=== PATIENT | male | born 1950 | race Caucasian/White ===

== ENCOUNTER 2017-08-22 05:50 | Inpatient (IN) | payer MEDICARE, BC ==
--- NOTE | 2017-08-14 18:38 | HP ---
HISTORY AND PHYSICAL: DATE OF ADMISSION/SURGERY: 08/22/17 PROVIDER: Jacob Cotton MD * (DICTATED BY JAE RODRIGUES) CHIEF COMPLAINT: Left knee pain. HISTORY OF PRESENT ILLNESS: Rashel is a 67-year-old man with left knee pain. He has previously had a right total knee arthroplasty in [place] [address] Cotton. He continues to have right knee pain, which is worse with walking on ground that is sloped to the left. He has previously failed conservative treatment including NSAIDs, hinged brace and cortisone injection on 01/11/17. He would like to proceed with a left total knee arthroplasty. He continues to have problems with walking upstairs and on long walks. He does have evidence of significant osteoarthritis by radiograph. He hiked the [place] in the summer 2016 after a cortisone injection. PAST MEDICAL HISTORY: Includes dysthymia, hyperlipidemia, and hypothyroidism. PAST SURGICAL HISTORY: Includes right TKA in May 2014. MEDICATIONS: 1. Pravastatin 40 mg daily. 2. Levothyroxine 75 mcg daily. 3. Mirtazapine 15 mg daily. 4. Ibuprofen p.r.n. 5. Dextroamphetamine 10 mg 1 to 3 times a day as needed. ALLERGIES: No known drug allergies. FAMILY HISTORY: Hypothyroidism in daughter and diabetes in son. SOCIAL HISTORY: He is a nonsmoker and has never smoked. Moderate alcohol consumption about 2 L a week of wine and denies any illicit drug use. REVIEW OF SYSTEMS: General: Denies fevers, chills, or night sweats. HEENT: Denies headache, lightheadedness, or syncope. Cardiothoracic: Negative for chest pain or heart palpitations. Pulmonary: Negative for shortness of breath on exertion, COPD, or asthma. GI: Denies nausea, vomiting, diarrhea, or constipation. : Negative for urinary frequency or urgency, history of urinary tract infections. Musculoskeletal: As above. Denies any chronic or intermittent back pain. Neuro: Denies any paresthesias, numbness, seizures, or stroke. Endocrine: Positive for hypothyroidism. Negative for diabetes. Hematology: Negative for anemia or history of DVT. PHYSICAL EXAMINATION GENERAL: Well-developed, well-nourished male, appearing his stated age. Alert and oriented x3. HEENT: Normocephalic, atraumatic. NECK: Supple neck. Thyroid nontender. No appreciable nodules. PULMONARY: Lung baxter clear to auscultation bilaterally. No wheezes, rubs, or rales. CARDIOVASCULAR: Regular rate and rhythm. No appreciable murmurs. Pedal pulses 2+ bilaterally. ABDOMEN: Normal bowel sounds, nontender abdomen. MUSCULOSKELETAL: Lower left extremity: Left knee extension negative, 130 degrees flexion. No effusion. MCL and LCL stable. Some tenderness in medial joint line. Nontender anteriorly, laterally, and posteriorly. Thigh and calves are soft. IMPRESSION: Severe left knee arthritis with varus malalignment. The patient would like to proceed with left total knee replacement. PLAN: Rashel will undergo a left total knee replacement scheduled at [facility] on 08/[address] Cotton. He will return to clinic 7 to 10 days postoperatively for suture removal and followup. A prescription for Percocet was sent to his pharmacy and can be used for severe postoperative pain management. We have discussed the use of ibuprofen and naproxen or other NSAID for uanq-go-ipufvgda pain management. I-STOP has been checked. JAE RODRIGUES [id number]/[facility] #: [id number] AZAR
[~2017-08-22 05:50] MED LIST: Buffered Lidocaine 0.9% SYRIN* 5 ML/SYR SYRINGE INTRADERM ONE
[2017-08-22] MEDS ORDERED: Famotidine IV* 10 MG/ML 2 ML (20 mg) IV ONE (06:00)
[2017-08-22] MEDS ORDERED: Dexamethasone IV* 4 MG/ML 1 ML (4 MG) IV SLOW PU ONE (06:00)
[2017-08-22] MEDS ORDERED: Famotidine IV* 10 MG/ML 2 ML (20 mg) ONE (06:05)
[2017-08-22] MEDS ORDERED: ceFAZolin 2 GM PREMIX (*) 2 GM/50 ML BAG IVPB ONE (06:05)
[2017-08-22] MEDS ORDERED: Dexamethasone IV* 4 MG/ML 1 ML (4 MG) ONE (06:05)
[2017-08-22] MEDS ORDERED: Buffered Lidocaine 0.9% SYRIN* 5 ML/SYR SYRINGE ONE (06:05)
[2017-08-22] MEDS ORDERED: Morphine PF AMP (0.5MG/ML)* 5 MG/10 ML AMP ONE (07:13)
[2017-08-22] MEDS ORDERED: Propofol* 10 MG/ML 20 ML BTL IV PUSH ONE ×2 (07:13→09:10)
[2017-08-22] MEDS ORDERED: Ondansetron INJ* 2 MG/ML VIAL ONE (07:13)
[2017-08-22] MEDS ORDERED: KETAMINE HCL* 50 MG/ML 10 ML VIAL ONE (07:13)
[2017-08-22] MEDS ORDERED: Midazolam* 1 MG/ML 5 ML VIAL (5 MG) ONE ×2 (07:13→08:35)
[2017-08-22] MEDS ORDERED: Bupivacaine 0.5% SDV PF* 30 ML VIAL ONE (07:14)
[2017-08-22] MEDS ORDERED: Nalbuphine* 20 MG/ML 1 ML VIAL IV PRN ×2 (08:21)
[2017-08-22] MEDS ORDERED: Ondansetron INJ* 2 MG/ML VIAL IV PRN ×2 (08:21→10:57)
[2017-08-22] MEDS ORDERED: Naloxone* 0.4 MG/ML 1 ML VIAL IV PRN (08:21)
[2017-08-22] MEDS ORDERED: DiMENhydriNATE IV* 50 MG/ML VIAL IV PUSH PRN (08:21)
[2017-08-22] MEDS ORDERED: oxyCODONE/Acetamin 5/325 MG* TAB PO PRN ×3 (08:21→10:57)
[2017-08-22] MEDS ORDERED: Scopolamine 1.5 mg* PATCH TRANSDERM SCH (09:00)
[2017-08-22] MEDS ORDERED: Glycopyrrolate IV* 0.2 MG/ML 1 ML VIAL ONE (09:12)
[2017-08-22] MEDS ORDERED: Magnesium Hydroxide LIQ* 30 ML UDC PO PRN (10:57)
[2017-08-22] MEDS ORDERED: Acetaminophen TAB* 325 MG PO PRN (10:57)
[2017-08-22] MEDS ORDERED: Morphine INJ* 4 MG/ML 1 ML CARPUJECT IV PRN (10:57)
[2017-08-22] MEDS ORDERED: diPHENhydraMINE PO* 25 MG PO PRN (10:57)
[2017-08-22] MEDS: Ropivacaine* 300 MG in NS 0.9% 250 ML* 240 ML EPIDURAL SCH (13:01)
--- NOTE | 2017-08-22 13:49 | RAD ---
Indication: Immediate postop exam following LEFT total knee replacement. Comparison: No relevant prior exams available on the [facility] for comparison. Technique: Portable AP and cross table lateral views LEFT knee. Report: Status post total knee replacement. Anterior cutaneous zeferino and surgical drain in place. Post-op fluid and gas is seen in the joint space and anterior subcutaneous tissues. Alignment is anatomic. No periprosthetic fracture evident. IMPRESSION: Unremarkable immediate postoperative appearance following LEFT knee replacement.
[2017-08-22] MEDS: ceFAZolin 1 GM VIAL(*) 1 GM in NS 0.9% 50 ML* 50 ML IVPB SCH ×2 (16:16→23:48)
[2017-08-22] MEDS: Docusate CAP* 100 MG PO SCH (21:49)
[2017-08-22] MEDS: Mirtazapine TAB* 15 MG PO SCH (21:49)
--- NOTE | 2017-08-23 02:24 | OP ---
CC: Dr. Pang * DATE OF OPERATION: 08/22/17 - ROOM #348 DATE OF : 50 SURGEON: Jacob Cotton MD ASSISTANTS: JAE Izaguirre and Samanta Agrawal surgical resident. ANESTHESIOLOGIST: Dr. Augusto Mcqueen. ANESTHESIA: Spinal with Duramorph and epidural and IV sedation. PRE-OP DIAGNOSIS: Severe arthritis of the left knee. POST-OP DIAGNOSIS: Severe arthritis of the left knee. OPERATIVE PROCEDURE: Maxime Persona Knee - the femur is a size 10, the tibia is a size G, the articular surface is a 10 and the patella is 38 mm. COMPLICATIONS: There were no complications. DRAINS: Two drains, left knee, at the end of the case. BLOOD LOSS: 200 mL. REPLACEMENT: Crystalloid fluids. OPERATIVE INDICATIONS: Severe arthritis of the left knee with varus deformity. The arthritis is dtcl-hc-nzyh. It has been no longer responsive to nonoperative care. The patient had a right total knee replacement in the last couple of years. DESCRIPTION OF PROCEDURE: The patient was brought to the operating room and placed on the operating room table in the supine position following the administration of anesthetic. He was returned to the supine position, a Zavala catheter was inserted. The left posterior tibial pulse was noted to be 2+. The left leg was wrapped with a proximal thigh tourniquet. The left leg was given a preliminary chlorhexidine prep and then a formal surgical prep from the tourniquet to the tips of the toes. After prepping and draping and sealing off, we did our universal protocol time-out confirming Ross Deanagan and a plan for left total knee replacement. We all agreed and we proceeded. The surgical care was done without tourniquet with the knee acutely flexed in the left foot on a padded foot piece for much of the case. The skin incision went from two fingerbreadths proximal to the superior pole of the patella to the medial aspect of the tibial tubercle. Skin and subcu divided, the prepatellar bursa was traversed and the knee was entered medial parapatellar, dividing the quad tendon at the junction of the vastus medialis and the rectus femoris staying as close to vastus medialis muscle as possible for good blood supply. The knee had clear straw colored synovial fluid. The knee had complete eburnation of bone on the medial femoral condyle and medial tibial plateau, some scooping out of the medial tibial plateau. The patella had moderate degenerative changes and the lateral joint had moderate degenerative changes. The medial compartment completely [id number]-hvdq and eburnated. The anteromedial soft tissues on the tibia were elevated subperiosteally going around to the deep MCL and into the posteromedial corner of the knee. The ACL was divided. The patella was made so it could be everted. I removed the remaining of the anterior horn medial meniscus. The synovectomy was completed around the patella including much of the fat pad. The lateral meniscus was carefully excised. The small osteophytes around the unicondylar notch were removed and the ACL and the PCL were uplifted from the femoral origins and the tibia was made, so it could be subluxated for one of the femur. The distal anterior femur was exposed subperiosteally for referencing and measuring. A proximal tibial cut was made first, and our goal of this cut was to have a tibial surface that would be perpendicular to the long axis of the tibia and have a slight posterior slope, removing just a couple of millimeters from the medial side and 10 to 14 mm from the lateral side. Then, the intramedullary drill hole was made in the femur. The femur was suctioned to discourage any embolization and the distal femoral cutting guide was applied on #1 with 6 degrees of valgus for the left knee. This cut was completed and our extension gap was good for a 10 mm block. The femur was then measured for a size 10. The external rotation was put in and the anterior, posterior and chamfering cuts were completed. We then finished removal of the posterior horn medial meniscus. The osteophyte from the posteromedial femoral condyle, a little bit from the lateral femoral condyle, we finished removal of the PCL of the lateral meniscus, and we had a nice flexion gap of the fit very well for the 10 mm block. The femur was then completed with the intercondylar cut-out. The femur was then cleaned and the intramedullary x6 suctioned empty and the bone plug was inserted. The tibia was completed for a size G. The knee was articulated and extended with a G tibia 10 articular surface and the 10 femur. With full knee extension , stable ligaments on extension and knee flexion well past 120 degrees and stable ligaments in 90 degrees of knee flexion. The patella was then cut flat, a 38 was chosen, 3 drill holes were made and these were undercut and the patella was smooth medially and laterally where there was still a little bit of cartilage left. The lateral patellar facet was very firm bone, but also somewhat sclerotic. A drill hole was made here to accept cement. A lateral release was not necessary. The leg was then exsanguinated. The tourniquet elevated, the final components were opened up. The knee was cleaned with 2 L of pulse saline irrigation in extension, all debris removed. The knee was then cleaned in flexion and all bony surfaces were cleaned again with the pulse saline. All surfaces were dried and the cement was mixed and the components were cemented into the position, the patella, followed by tibia, followed by femur. Each was impacted. Excess cement was removed and the knee was articulated and extended during the final hardening. The tourniquet was deflated, hemostasis checked and achieved utilizing electrocautery. We irrigated several times with saline during the closure. The closure was completed with a #1 Vicryl [id number] sutures on the quadriceps tendon down to the distal aspect of the medial retinaculum and then 0 Vicryl after that. The deep subcu closed with 0 Vicryl. The superficial subcu closed with inverted 3-0 Vicryl sutures. The 2 drains were brought out the superolateral suprapatellar pouch and the skin was closed with zeferino. Skin was washed and dried and covered with Betadine-soaked release and sterile gauze. Same dressing was placed on the 2 drains, and then sterile Webril, cryotherapy cuff, 2 ABD pads and a 6-inch Sang bandage loosely applied. The posterior tibial pulse was 2+ at the end of the case. During the closure, the knee was extended , fully flexed past 130 degrees several times. The patient was then returned to the hospital bed and to the recovery room in stable and satisfactory condition having tolerated the procedure very well. [id number]/[facility] #: [id number] AZAR
[2017-08-23 05:54] LABS: Hematocrit 34 % (42-52); Hemoglobin 11.7 g/dl (14.0-18.0)
[2017-08-23 06:11] LABS: BUN/Creatinine Ratio 16.9 (8-20); Calcium 8.8 mg/dL (8.6-10.3); EGFR African American 109.7 (>60); EGFR Non-African American 85.3 (>60)
[2017-08-23] MEDS: Levothyroxine TAB* 25 MCG TAB PO SCH (06:19)
--- NOTE | 2017-08-23 07:06 | PN ---
Progress Note - Progress Note Date of Service: 08/23/17 Note: IN 5436 OUT 4605 Temp 98.2 H/H 11.7/34% X-ray left knee post op, all satisfactory. Ancef luisito-op prophylaxsis. Dr. Pang aware surgery done. Awake, alert, and breathing easily. Some pain left knee and no marked distress. Dressing left knee is dry. 2 drains removed left knee. Exercises done left hip, knee, ankle, and toes. Active movements all planes, no foot swelling. Left post. tib. pulse is 2 plus. IMP: Stable. Acute blood loss anemia. Plans: Up with therapy, TKR protocol ASA vein protection. Drinking and incentive spirometer. Goal: Home 08/24 or 08/25
[2017-08-23] MEDS: Ropivacaine* 300 MG in NS 0.9% 250 ML* 240 ML EPIDURAL SCH (07:42)
--- NOTE | 2017-08-23 08:44 | PN ---
Subjective - Subjective Reason for Note: Consultation Note History: Dr. Cotton asked me to review Rashel Webster from a medical point of view. He is 1 day post left total knee arthroplasty. He has tolerated this well and has good pain control. I note that he has had poor sleep for a couple of nights. He is hungry and ate well this morning. CVS: No chest pain, dyspnea or palpitations Resp: No cough/sputum GIT: No Nausea/vomiting, he has yet to have a bowel movt. No abdo pain. ; No problems Active Problems: Active Problems History of total knee arthroplasty (Acute) Z96.659 Insomnia (Acute) G47.00 Hypercholesterolemia (Chronic) E78.00 Idiopathic peripheral neuropathy (Chronic) G60.9 Current Medications: Current Medications Acetaminophen (Tylenol Tab*) 650 mg PO Q4H PRN PRN Reason: pain and temp Aspirin (Aspirin Tab*) 325 mg PO DAILY VALENTIN Atorvastatin Calcium (Lipitor*) 10 mg PO QAM VALENTIN PRN Reason: Protocol Dimenhydrinate (Dramamine Iv*) 25 mg IV PUSH ONCE PRN PRN Reason: NAUSEA/VOMITING Diphenhydramine HCl (Benadryl Po*) 25 mg PO Q6H PRN PRN Reason: itching Last Admin: 08/22/17 16:16 Dose: 25 mg Docusate Sodium (Colace Cap*) 100 mg PO BID [facility] Last Admin: 08/22/17 21:49 Dose: 100 mg Ropivacaine 300 mg/ Sodium (Chloride) 300 mls @ 0 mls/hr EPIDURAL Q24H VALENTIN; Per Protocol PRN Reason: Protocol Last Admin: 08/23/17 07:42 Dose: Not Given Lactated Ringer's (Lactated Ringers 500 Ml Bag*) 500 mls @ 2,000 mls/hr IV ONCE PRN PRN Reason: FOR SBP < 90 Lactated Ringer's (Lactated Ringers 1000 Ml Bag*) 1,000 mls @ 100 mls/hr IV PER RATE [facility] Last Admin: 08/22/17 23:05 Dose: 100 mls/hr Levothyroxine Sodium (Synthroid Tab*) 75 mcg PO DAILY@0600 [facility] Last Admin: 08/23/17 06:19 Dose: 75 mcg Magnesium Hydroxide (Milk Of Magnesia Liq*) 30 ml PO Q6H PRN PRN Reason: constipation Mirtazapine (Remeron Tab*) 15 mg PO QPM [facility] Last Admin: 08/22/17 21:49 Dose: 15 mg Morphine Sulfate (Morphine Inj (Syringe)*) 4 mg IV Q2H PRN PRN Reason: PAIN - BREAKTHROUGH Nalbuphine HCl (Nubain*) 5 mg IV Q6H PRN PRN Reason: NAUSEA/VOMITING Last Admin: 08/22/17 22:48 Dose: 5 mg Nalbuphine HCl (Nubain*) 5 mg IV Q6H PRN PRN Reason: PRURITIS Last Admin: 08/22/17 16:51 Dose: 5 mg Ondansetron HCl (Zofran Inj*) 4 mg IV Q6H PRN PRN Reason: NAUSEA/VOMITING Ondansetron HCl (Zofran Inj*) 4 mg IV Q6H PRN PRN Reason: nausea Oxycodone/Acetaminophen (Percocet 5/325 Tab*) 1 tab PO Q3H PRN PRN Reason: moderate pain Oxycodone/Acetaminophen (Percocet 5/325 Tab*) 2 tab PO Q4H PRN PRN Reason: moderate pain Last Admin: 08/23/17 07:48 Dose: 2 tab Oxycodone/Acetaminophen (Percocet 5/325 Tab*) 1 tab PO Q3H PRN PRN Reason: PAIN - MODERATE Oxycodone/Acetaminophen (Percocet 5/325 Tab*) 2 tab PO Q4H PRN PRN Reason: PAIN - MODERATE TO SEVERE Pharmacy Profile Note (Scopolamine Patch Remove*) 1 note PATCH OFF .AFTER 72 HOURS ONE Stop: 08/25/17 08:31 Scopolamine (Transderm-Scop 1.5 Mg Patch*) 1 patch TRANSDERM Q72H [facility] Last Admin: 08/22/17 13:01 Dose: Not Given Home Medications: Home Medications Medication Instructions Recorded Confirmed Type Mirtazapine TAB* [Remeron TAB*] 15 mg PO QPM 01/30/13 08/22/17 History Levothyroxine TAB* [Synthroid 25 75 mcg PO QAM 05/05/14 08/22/17 History MCG TAB*] Naproxen Sodium [Aleve] 2 tab PO ONCE PRN 05/05/14 08/22/17 History Pravastatin (NF) [Pravachol (NF)] 40 mg PO QAM 05/05/14 08/22/17 History Tadalafil [Cialis] 2.5 mg PO QAM 08/14/17 08/22/17 History Allergies: Allergies Allergy/AdvReac Type Severity Reaction Status Date / Time No Known Allergies Allergy Verified 08/22/17 06:12 Objective - Vital Signs Vital Signs: Vital Signs 08/22/17 08/22/17 08/22/17 10:55 11:00 11:05 Temperature 97.9 F Pulse Rate 45 48 45 Respiratory 12 14 14 Rate Blood Pressure 112/65 117/62 132/67 (mmHg) O2 Sat by Pulse 99 99 99 Oximetry 08/22/17 08/22/17 08/22/17 11:10 11:15 11:21 Temperature Pulse Rate 44 42 Respiratory 12 12 18 Rate Blood Pressure 117/53 118/64 (mmHg) O2 Sat by Pulse 99 99 Oximetry 08/22/17 08/22/17 08/22/17 11:30 11:45 12:00 Temperature 97.3 F Pulse Rate 42 45 43 Respiratory 14 12 12 Rate Blood Pressure 112/72 121/64 118/39 (mmHg) O2 Sat by Pulse 99 99 99 Oximetry 08/22/17 08/22/17 08/22/17 12:15 12:20 13:00 Temperature 97.2 F Pulse Rate 44 48 46 Respiratory 14 16 18 Rate Blood Pressure 128/68 140/79 126/72 (mmHg) O2 Sat by Pulse 99 99 100 Oximetry 08/22/17 08/22/17 08/22/17 13:04 13:52 14:50 Temperature 97.4 F 97.8 F 96.9 F Pulse Rate 46 47 41 Respiratory 18 16 18 Rate Blood Pressure 126/72 142/81 142/79 (mmHg) O2 Sat by Pulse 100 97 99 Oximetry 08/22/17 08/22/17 08/22/17 16:00 16:16 16:49 Temperature 97.4 F Pulse Rate 48 Respiratory 18 16 Rate Blood Pressure 150/85 (mmHg) O2 Sat by Pulse 100 100 Oximetry 08/22/17 08/22/17 08/22/17 16:51 17:46 18:22 Temperature Pulse Rate Respiratory 18 18 18 Rate Blood Pressure (mmHg) O2 Sat by Pulse Oximetry 08/22/17 08/22/17 08/22/17 18:47 20:00 22:48 Temperature 98.2 F Pulse Rate 51 Respiratory 18 18 18 Rate Blood Pressure 140/79 (mmHg) O2 Sat by Pulse 99 Oximetry 08/22/17 08/23/17 08/23/17 23:38 01:37 03:39 Temperature 98.0 F 97.9 F Pulse Rate 60 55 Respiratory 18 16 16 Rate Blood Pressure 132/60 122/64 (mmHg) O2 Sat by Pulse 97 100 Oximetry 08/23/17 08/23/17 08/23/17 04:08 06:30 07:48 Temperature Pulse Rate Respiratory 20 18 Rate Blood Pressure (mmHg) O2 Sat by Pulse 100 Oximetry - Intake and Output Intake and Output: Intake & Output 08/20/17 08/21/17 08/22/17 08/23/17 11:59 11:59 11:59 11:59 Intake Total 2100 3336 Output Total 930 3675 Balance 1170 -339 Intake: IV Fluids 2100 831 LR 2100 831 IVPB 185 ABX - CEFAZOLIN 55 LR 130 Oral 2320 Output: Hemovac Amount #1 900 Hemovac Amount #2 200 Zavala 900 2575 Residual 30 Zavala 16 Fr 30 Other: # Bowel Movements 0 ADLs: Meal Record Start: 08/22/17 11: 21 Freq: Status: Active Protocol: Created 08/22/17 11:21 [id number] (Rec: 08/22/17 11:21 [id number] [id number]) Intake and Output Start: 08/22/17 10: 57 Freq: 06,14,2200 Status: Complete Protocol: Created 08/22/17 11:15 [id number] (Rec: 08/22/17 11:15 BKG [id number]) Document 08/22/17 13:58 [id number] (Rec: 08/22/17 13:59 [id number] SSU-C01) Intake and Output Start: 08/22/17 11: 21 Freq: DAILY@0600,1400,2200 Status: Active Protocol: Created 08/22/17 11:21 [id number] (Rec: 08/22/17 11:21 [id number] SSU-C01) Document 08/22/17 14:00 [id number] (Rec: 08/22/17 17:07 [id number] [facility]-M14) Document 08/22/17 18:00 [id number] (Rec: 08/22/17 18:26 [id number] U-C08) Document 08/22/17 20:03 [id number] (Rec: 08/22/17 20:03 [id number] U-M14) Document 08/22/17 22:00 [id number] (Rec: 08/22/17 22:19 [id number] U-C08) Document 08/23/17 04:45 [id number] (Rec: 08/23/17 04:45 [id number] U-C20) Document 08/23/17 06:21 [id number] (Rec: 08/23/17 06:21 [id number] [facility]-M14) - Physical Exam General Physical Exam Comment: Warm and well perfused, he his hemodynamically stable and alert, oriented and conversational General: No Cyanosis, No Anemia, No Jaundice, No Clubbing Lungs and Chest: Yes: Chest Expansion Full, Chest Expansion Symetrica, Percussion Note Resonant, Vessicular Breath Sounds. No: Crackles, Wheezes, Respiratory Distress, Use of Accessory Muscles Heart Rate and Rhythm: Regular Additional Cardiovascular: Yes: Normal Heart Sounds. No: Heart Murmur, Pedal Edema Abdominal Exam: Yes: Soft, Bowel Sounds Present. No: Distention, Abdominal Tenderness Results - Results Lab Results: Laboratory Results - last 24 hr 08/23/17 08/23/17 05:34 05:34 Hgb 11.7 L Hct 34 L Sodium 132 L Potassium 4.0 Chloride 101 Carbon Dioxide 26 Anion Gap 5 BUN 15 Creatinine 0.89 Est GFR ( Amer) 109.7 Est GFR (Non-Af Amer) 85.3 BUN/Creatinine Ratio 16.9 Glucose 125 H Calcium 8.8 Assessment - Problem List Assessment: Patient Problems History of total knee arthroplasty (Acute) Insomnia (Acute) Hypercholesterolemia (Chronic) Idiopathic peripheral neuropathy (Chronic) Plan: He has tolerated the surgical procedure well. He is determined to minimize the time it takes to become functional once again. The main issue is insomnia - I will write for temazepam. Dr. Cotton will arrange for DVT prevention. I do not need to follow further from the medical point of view unless there is a change in status.
[2017-08-23] MEDS: Docusate CAP* 100 MG PO SCH ×2 (08:47→20:00)
[2017-08-23] MEDS: Aspirin TAB* 325 MG PO SCH (08:47)
[2017-08-23] MEDS: Atorvastatin* 10 MG TAB PO SCH (08:47)
[2017-08-23] MEDS: ceFAZolin 1 GM VIAL(*) 1 GM in NS 0.9% 50 ML* 50 ML IVPB SCH (08:47)
[2017-08-23] MEDS ORDERED: Temazepam CAP* 15 MG PO PRN (08:49)
[2017-08-23] MEDS: oxyCODONE/Acetamin 5/325 MG* TAB PO PRN ×3 (12:11→22:44)
[2017-08-23] MEDS: Mirtazapine TAB* 15 MG PO SCH (20:00)
[2017-08-24] MEDS: oxyCODONE/Acetamin 5/325 MG* TAB PO PRN ×4 (02:48→16:49)
[2017-08-24] MEDS: Levothyroxine TAB* 25 MCG TAB PO SCH (05:42)
[2017-08-24 05:55] LABS: Hematocrit 31 % (42-52); Hemoglobin 10.9 g/dl (14.0-18.0)
[2017-08-24] MEDS ORDERED: oxyCODONE TAB* 5 MG TAB PO PRN ×2 (07:10→09:12)
--- NOTE | 2017-08-24 08:30 | PN ---
Progress Note - Progress Note Date of Service: 08/24/17 SOAP: Subjective: []Patient seen at bedside in company of Dr. Cotton. His pain is well controlled, he received IV morphine this morning. Objective: [] Vital Signs Temp 97.9 F 08/24/17 07:43 Pulse 58 08/24/17 08:22 Resp 12 08/24/17 08:22 BP 153/72 08/24/17 07:43 Pulse Ox 97 08/24/17 07:43 Intake & Output 08/23/17 08/24/17 08/24/17 18:59 06:59 18:59 Intake Total 1731 1580 470 Output Total 2125 650 Balance -394 930 470 Intake: IVPB 1066 ABX - CEFAZOLIN 113 LR 953 Oral 665 1580 470 Output: Urine 2125 650 Other: Estimated Void Medium Laboratory Last Values Hgb 10.9 g/dl (14.0-18.0) L 08/24/17 05:31 Hct 31 % (42-52) L 08/24/17 05:31 Sodium 132 mmol/L (133-145) L 08/23/17 05:34 Potassium 4.0 mmol/L (3.5-5.0) 08/23/17 05:34 Chloride 101 mmol/L (101-111) 08/23/17 05:34 Carbon Dioxide 26 mmol/L (22-32) 08/23/17 05:34 Anion Gap 5 mmol/L (2-11) 08/23/17 05:34 BUN 15 mg/dL (6-24) 08/23/17 05:34 Creatinine 0.89 mg/dL (0.67-1.17) 08/23/17 05:34 Est GFR ( Amer) 109.7 (>60) 08/23/17 05:34 Est GFR (Non-Af Amer) 85.3 (>60) 08/23/17 05:34 BUN/Creatinine Ratio 16.9 (8-20) 08/23/17 05:34 Glucose 125 mg/dL (70-100) H 08/23/17 05:34 Calcium 8.8 mg/dL (8.6-10.3) 08/23/17 05:34 General: Well appearing, no acute distress. LLE: Incision is clean, dry, intact without surrounding erythema or discharge. Dressing changed. Sensation intact distally. DP pulse 2+. DF/PF intact. Mild swelling at left ankle. Calf is supple and nontender without erythema. Assessment: []s/p Left total knee arthroplasty 08/22, Dr. Cotton Plan: []ASA 325 mg qd for DVT/ PE prophylaxis Had morphine for pain this morning. Understands he will have only PO medications at home Has met PT goals Plan for DC home today <Marlene Serna - Last Filed: 08/24/17 11:21> - Progress Note SOAP: Subjective: [] Objective: [] New dressing applied to the left knee of telfa/betadine solution, gauze and cyrus bandage DDugan Assessment: [] Plan: [] <Jacob Cotton - Last Filed: 08/25/17 07:22>
[2017-08-24] MEDS: Aspirin TAB* 325 MG PO SCH (08:50)
[2017-08-24] MEDS: Atorvastatin* 10 MG TAB PO SCH (08:50)
[2017-08-24] MEDS: Docusate CAP* 100 MG PO SCH (08:52)
[2017-08-24] MEDS ORDERED: Influenza VAC *QUAD* 2017-18* 0.5 ML SYRINGE IM ONE (09:00)
[2017-08-24 16:29] VITALS: BP 139/67
[2017-08-25] MEDS ORDERED: Scopolamine PATCH Remove* 1 NOTE MISC PATCH OFF ONE (08:30)
--- NOTE | 2017-08-25 09:43 | DS ---
DISCHARGE SUMMARY: DATE OF ADMISSION: 08/22/17 DATE OF DISCHARGE: 08/24/17 DATE OF SURGERY: 08/22/17 PROVIDER: Dr. Jacob Cotton * (DICTATED BY JAE KEATING) ADMITTING DIAGNOSIS: Severe left knee arthritis with varus malalignment. CONSULTATIONS: Included Physical Therapy and Occupational Therapy. HISTORY OF PRESENT ILLNESS: Mr. Webster is a 67-year-old man with left knee pain. He has previously had a right total knee arthroplasty in May [address] Cotton. He continues to have left knee pain that is worse with walking on the ground, ___slanted to the left. He has previously failed conservative treatment with NSAIDs, hinged brace, and cortisone injection on 02/22. He would like to proceed with left total knee arthroplasty. He continues to have problems with walking upstairs and on long walks and does have significant evidence of osteoarthritis by radiograph. HOSPITAL COURSE: The patient was admitted to [facility] on 08/22/17 and underwent a left total knee arthroplasty with no complications. The patient recovered briefly in the post-anesthesia care unit, and then was transferred to the short-stay surgical unit in stable condition. On postop day 1, the patient's H and H was 11.7 and 34. On postop day 2, H and H was 10.9 and 31. His sodium was noted to be mildly low, on 08/23/17 down at 132. On postop day 1, the dressing was clean, dry, and intact, and the extremity was neurovascularly intact. The patient could demonstrate dorsiflex and plantarflexion with good strength. The patient was able to get up out of bed with physical therapy. Zavala catheter was removed and the patient was able to void without difficulty. On postop day 2, the incision was found to be benign with no drainage, no erythema, no warmth. Pain was well controlled with the use of Percocet and morphine for breakthrough. The patient was able to ambulate with use of a rolling walker, and physical therapy goals were met. Throughout the hospital course, vital signs remained stable and the patient was afebrile. Throughout the patient's hospital course, he was neurovascularly intact. He had active dorsiflexion and plantarflexion. Good capillary refill distally. DISCHARGE CONDITION: Stable. DISCHARGE MEDICATIONS: 1. Remeron 15 mg p.o. q.p.m. 2. Pravastatin 40 mg q.a.m. 3. Levothyroxine 75 mcg p.o. q.a.m. 4. Cialis 2.5 mg q.a.m. 5. Acetaminophen 650 mg p.o. q.4 hours p.r.n., not to exceed 4000 mg of acetaminophen daily from all sources. 6. Aspirin 325 mg p.o. daily. 7. Docusate 100 mg 3 times a day. 8. Percocet 1 to 2 tabs q.4 hours p.r.n., max daily dose of 12. DISCHARGE INSTRUCTIONS: The patient is weightbearing as tolerated. He may shower. He may wash his wound with light soap and water and pat dry. He may not submerge, swim, or take a bath. Take aspirin 325 mg daily for dvt/pe prophylaxis. He will follow up with Dr. Cotton within 3 to 4 weeks. Home nurses will remove zeferino between the and 04 of September. JAE JEWELL [id number]/[facility] #: [id number] AZAR
== END 2017-08-24 17:05 | disposition home health service (06) | DRG 470 ==
LOC: AA 05:50 → SSU 12:55
PROVIDERS: ADMIT Orthopaedic Surgery; ATTEND Orthopaedic Surgery
PROC: 0SRD0J9 Replacement of Left Knee Joint with Synthetic Substitute, Cemented, Open Approach (ICD-10-PCS; principal; 2017-08-22 07:30)
DX: M17.12 Unilateral primary osteoarthritis, left knee (principal); D62 Acute posthemorrhagic anemia; E03.9 Hypothyroidism, unspecified; M21.162 Varus deformity, not elsewhere classified, left knee; Z96.651 Presence of right artificial knee joint; G47.00 Insomnia, unspecified; E78.00 Pure hypercholesterolemia, unspecified; G60.9 Hereditary and idiopathic neuropathy, unspecified; Z79.82 Long term (current) use of aspirin; Z83.3 Family history of diabetes mellitus; Z72.89 Other problems related to lifestyle; Z23 Encounter for immunization
CPT/HCPCS: 36415; 62327; 80048; 85014; 85018; 90686; A9270-GY; C1776; J0690; J1100; J2250; J2270; J2300; J2405; J2704; J2795

== ENCOUNTER 2019-11-16 10:38 | Emergency (ER) | payer MEDICARE, BC ==
[2019-11-16 11:02] VITALS: BP 127/73
--- NOTE | 2019-11-16 11:50 | UC ---
Hypertension HPI - HPI Summary HPI Summary: CHIEF COMPLAINT: concerned about high blood pressure; tingling sensation over the left chest HPI: For the last week or so, the patient has experienced tingling, not described as burning, in a crescent shaped area above the left breast. This began after doing bench presses at [employer]. It is slightly better now than it was when this initially happened. Patient was seen by his own caregiver and there was no concern for this symptom. At that time, approximately 4 days ago, patient's blood pressure was above 120/80. Subsequent to that he measured his own blood pressure at [facility] and it returned at 155/87. In the urgent care center today, his blood pressure is 127/ 73. Patient denies signs and symptoms of angina or myocardial infarction including nausea, vomiting, sweating or chest pain or pain radiating to his back. He does have a history of peripheral neuropathy in his left upper and lower extremity that has caused tingling in the past. However, today there is no abnormal sensation in the left arm. Patient is hypothyroid and has elevated cholesterol, but is otherwise healthy. Nurse's note: left pectoral muscle tingling x 1 week, on and off. symptoms started immediately after heavy weight lifting. numbness/tingling sensation comes and goes, mostly at night when lying down. feels it less when active. denies any SOB, nausea, dizziness, or any other associated symptoms. denies any symptoms currently. has also noticed his BP has been a bit higher lately - 150' s. - History of Current Complaint Chief Complaint: UCGeneralIllness Stated Complaint: HIGH BLOOD PRESSURE CHEST COMPLAINT Time Seen by Provider: 11/16/19 11:46 - Allergies/Home Medications Allergies/Adverse Reactions: Allergies Allergy/AdvReac Type Severity Reaction Status Date / Time No Known Allergies Allergy Verified 11/16/19 11:02 Home Medications: Home Medications Dextroamphetamine Sulfate [Dextroamphetamine Sulfate ER] 15 mg PO DAILY PRN 05/28 [History Confirmed 11/16/19] Melatonin 1 mg PO DAILY 11/16/19 [History Confirmed 11/16/19] PMH/Surg Hx/FS Hx/Imm Hx - Additional Past Medical History Additional PMH: PAST MEDICAL HISTORY- CHRONIC and RECURRENT HEALTH PROBLEM LIST REVIEWED. Information relevant to present complaint: none Other: right inguinal hernia repair 2001 [facility] [place] right total knee replacement 2013 [facility] [place] left total knee 2017 VISIT HISTORY REVIEWED. elevated cholesterol, hypothyroid. MEDICATIONS & ALLERGIES REVIEWED. HYPERTENSION STATUS: no history of hypertension; on no medications for hypertension FAMILY HISTORY: Positive for: hypertension, cardiovascular disease, stroke, diabetes, cancer. Patient denies family history of: hypertension, cardiovascular disease, stroke, diabetes, cancer. SOCIAL HISTORY: Smoker:nonsmoker Home:lives with family Employment:retired teacher Previously Healthy: Yes - Surgical History Surgical History: Yes Surgery Procedure, Year, and Place: right inguinal hernia repair 2001 [facility] [place]. right total knee replacement 2013 [facility] [place]. left total knee 2017 - Social History Alcohol Use: Occasionally Alcohol Amount: reports 2 liters wine per week Substance Use Type: None Smoking Status (MU): Never Smoked Tobacco - Immunization History Most Recent Influenza Vaccination: 2012 Most Recent Tetanus Shot: UP TO DATE Most Recent Pneumonia Vaccination: within last 5 years Review of Systems All Other Systems Reviewed And Are Negative: Yes Constitutional: Positive: Negative Skin: Positive: Negative Respiratory: Positive: Negative Cardiovascular: Positive: Other - patient has a tingling sensation in the area of the left chest.. Negative: Palpitations, Chest Pain Gastrointestinal: Positive: Negative Genitourinary: Positive: Negative Is Patient Immunocompromised?: No Physical Exam - Summary Physical Exam Summary: Appearance: The patient is well-appearing, is in no pain or distress, and is well-nourished. Eyes: Conjunctiva are clear. Pupils are equal and reactive to light and accommodation. Extra ocular muscle movement is intact. ENT: The hearing is grossly normal, the pharynx is normal, and the TMs are normal. There is no muffled or hoarse voice. No stridor. Neck: The neck is supple and there is no lymphadenopathy. Respiratory: The chest is non-tender to palpation and without crepitus. The lungs are clear, there are normal breath sounds, and there is no respiratory distress. No wheezes, rales or rhonchi. Cardiovascular: Heart sounds reveal a regular rate and rhythm. There are no clicks, rubs or murmurs. There are no carotid bruits or thrills. Circulation is grossly intact. Abdomen: The abdomen is soft and nontender. There is no organomegaly. Bowel sounds are present and within normal limits. No point tenderness at McBurneys point. No CVA tenderness. Musculoskeletal: Strength is intact. The patient moves all extremities. Neurological: The patient is alert. Motor and sensory are examination grossly intact. Speech is normal. Psychological: The patient displays age appropriate behavior, and is conversant. GCS=15. Skin: Negative for rashes. EKG: sinus bradycardia at a rate of 43. No evidence of ischemia. Triage Information Reviewed: Yes Vital Signs: Initial Vital Signs Temp 98 F 11/16/19 10:55 Pulse 42 11/16/19 10:55 Resp 14 11/16/19 10:55 BP 127/73 11/16/19 10:55 Pulse Ox 99 11/16/19 10:55 Vital Signs Reviewed: Yes Hypertension Course/Dx - Course Course Of Treatment: For the last week or so, the patient has experienced tingling, not described as burning, in a crescent shaped area above the left breast. This began after doing bench presses at [employer]. It is slightly better now than it was when this initially happened. patient was seen by his own caregiver and there was no concern for this symptom. At that time, approximately 4 days ago patient 's blood pressure which is usually within the normal range was above 120/80. Subsequent to that he measured his own blood pressure at [facility] and it returned at 155/87. In the urgent care center today, his blood pressure is 127/ 73. patient denies signs and symptoms of angina or myocardial infarction including nausea, vomiting, sweating or chest pain or pain radiating to his back. He does have a history of peripheral neuropathy in his left upper and lower extremity that has caused tingling in the past. However, today there is no abnormal sensation in the left arm. Patient is hypothyroid and has elevated cholesterol, but is otherwise healthy. physical examination is unremarkable. Specific examination of the area of discomfort above the left chest shows no evidence of skin abnormality that might be consistent with varicella zoster. Palpating this area to create a mild burning for the patient. The patient looks otherwise healthy. His vital signs are stable. Specifically, his blood pressure is 127/73. An EKG was within normal limits except for a sinus bradycardia with a rate of 43. I compared today's EKG with a previous EKG from 08/14/17 and there was no significant difference. The rest at that time was 60. The patient is asymptomatic. He is not dizzy, short of breath and he does not have chest pain.. I did explain that this could be early shingles. Most likely this is related to muscle strain after overdoing his bench presses. Patient will follow up on his blood pressure and return to his primary care for further evaluation, as needed over the next 8 weeks. the patient may be developing hypertension, but there is no evidence of hypertension. Today. My diagnosis is left chest muscle strain. I spoke to the patient about his condition and he voiced understanding. He will follow up for any change in his condition. He will also follow his blood pressure and is aware that shingles sometimes causes symptoms similar to his. - Differential Dx/Diagnosis Provider Diagnosis: Hypertension Discharge ED - Sign-Out/Discharge Documenting (check all that apply): Patient Departure All imaging exams completed and their final reports reviewed: No Studies - Discharge Plan Condition: Stable Disposition: HOME Patient Education Materials: Chest Pain (DC), Hypertension (ED) Referrals: Avery Pang MD [Primary Care Provider] - Additional Instructions: WE DISCUSSED: PLEASE SEEK CARE AT THE EMERGENCY DEPARTMENT IF SYMPTOMS WORSEN OR IF NEW SYMPTOMS DEVELOP. FOLLOW UP WITH YOUR PRIMARY CARE PHYSICIAN IF CONDITION CONTINUES BEYOND 3 DAYS WITHOUT IMPROVEMENT. YOUR DIAGNOSIS IS: Muscle strain in the area of your left chest; possible early , essential hypertension YOUR PRESCRIPTION RECOMMENDATION IS:none Follow-up with your primary care provider within 4 weeks for blood pressure check and appropriate recommendations and treatment, as needed. FOR PAIN AND/OR SLEEP: For pain: Ibuprofen (Motrin and other brand names) 400-600mg PLUS acetaminophen (Tylenol and other brand names) 500mg - 1000mg every 8 hours. Recheck here or in the emergency department for any change in your chest symptoms. - Billing Disposition and Condition Condition: STABLE Disposition: Home
== END 2019-11-16 12:30 | disposition home or self-care (01) ==
LOC: UCEAST 10:38
DX: I10 Essential (primary) hypertension (principal); E03.9 Hypothyroidism, unspecified
CPT/HCPCS: 93005; 99211; G0463